=== PATIENT | female | born 1990 | race Asian ===

== ENCOUNTER 2019-05-03 08:30 | Inpatient (IN) | payer BC ==
[2019-05-03] MEDS ORDERED: AMPICILLIN SODIUM 2 GM VIAL ONE (09:22)
[2019-05-03] MEDS ORDERED: AMPICILLIN - 2 GM in SODIUM CHLORIDE 100 ML IVPB ONE (09:30)
[2019-05-03 10:32] VITALS: BMI 24.7
[2019-05-03 10:47] LABS: BASO % 0.4 % (0-2.0); EOS % 0.4 % (0-4.5); HEMATOCRIT 37.5 % (32.4-45.2); HEMOGLOBIN 12.4 GM/dL (10.7-15.3); LYMPH % 19.9 % (8-40); MCH 30.1 pg (25.7-33.7); MEAN CELL VOLUME 91.2 fl (80-96); MEAN PLT VOLUME 7.2 fl (7.5-11.1); MONO % 5.1 % (3.8-10.2); NEUT % 74.2 % (42.8-82.8); PLATELET COUNT 299 K/MM3 (134-434); RBC 4.12 M/mm3 (3.60-5.2); RDW 13.6 % (11.6-15.6); WHITE BLOOD COUNT 12.4 K/mm3 (4.0-10.0)
[2019-05-03 11:09] LABS: INR 0.82 (0.83-1.09); PROTHROMBIN TIME (PATIENT) 9.6 SEC (9.7-13.0)
[2019-05-03 11:10] LABS: ACTIVATED PTT 29.4 SECONDS (25.2-36.5)
[2019-05-03 11:12] LABS: BLOOD UREA NITROGEN 7.9 mg/dL (7-18); CALCIUM 8.7 mg/dL (8.5-10.1); CREATININE 0.7 mg/dL (0.55-1.3)
[2019-05-03] MEDS ORDERED: ELECTROLYTE-148 SOLN 500 ML IV ONE (11:15)
--- NOTE | 2019-05-03 11:30 | HP ---
Past Medical History - Admission History of Present Illness: 28 yo @ 39 5/7 wks by first trimester ultrasound, EDC 05/05/2019 complicated by: 1. GBS positive - no PCN allergy Patient reports contractions began at midnight, became stronger at around 0500 this AM. She reports movement, denies leakage of fluid, vaginal bleeding. History Source: Patient Limitations to Obtaining History: No Limitations - Past Medical History Cardiovascular: No: HTN Pulmonary: No: Asthma Gastrointestinal: No: GERD ...: 1 ...Para: 0 ...Term: 0 ...: 0 ...Spon : 0 ...Induced : 0 ...Multiple Gestation: 0 ...LMP: 07/29/18 ... Weeks Gestation by Dates: 39.5 ...EDC by Dates: 05/05/19 ...EDC by Sono: 05/05/19 Heme/Onc: No: Anemia - Past Surgical History Hx Myomectomy: No Hx Transabdominal Cerclage: No - Smoking History Smoking history: Never smoked - Alcohol/Substance Use Hx Alcohol Use: No History of Substance Use: reports: None - Social History History of Recent Travel: No Home Medications - Allergies Allergies/Adverse Reactions: Allergies Allergy/AdvReac Type Severity Reaction Status Date / Time No Known Drug Allergies Allergy Verified 05/03/19 09:43 - Home Medications Home Medications: Ambulatory Orders Prenat 115/Iron Fum/Folic/Dss [ 19 Tablet] 1 tab PO DAILY 05/03/19 Family Disease History - Family Disease History Family History: Denies Review of Systems - Review of Systems Constitutional: reports: No Symptoms Neck: reports: No Symptoms Cardiovascular: reports: No Symptoms Gastrointestinal: reports: No Symptoms Genitourinary: reports: No Symptoms Integumentary: reports: No Symptoms Neurological: reports: No Symptoms Endocrine: reports: No Symptoms Psychiatric: reports: No Symptoms Physical Exam - Maternity Vital Signs: Vital Signs Temperature 98.3 F 05/03/19 10:22 Pulse Rate 77 05/03/19 10:22 Respiratory Rate 20 05/03/19 10:22 Blood Pressure 123/76 05/03/19 10:22 O2 Sat by Pulse Oximetry (%) Constitutional: Yes: Well Nourished, No Distress, Calm Cardiovascular: Yes: Regular Rate and Rhythm, Varicosities - Abdominal Exam/OB Number of Fetuses: Single Presentation: Vertex Contractions: Yes Regularity: Regular Monitor Mode: External Heart Rate (range): 135 Category: I Accelerations: Non-Uniform Decelerations: None - Vaginal Exam/OB Vaginal Bleediing: No Dilatation (cm): 8 Effacement (%): 80 Amniotic Membrane Status: Ruptured Amniotic Fluid: Yes: Clear Station: -1 - Physical Exam Psychiatric: Yes: Alert, Oriented - Labs Lab Results: CBC, BMP 05/03/19 10:25 05/03/19 10:25 PNL: B positive, antibody negative; RPR NR; HIV neg; Varicella immune; Rubella immune; Sequential 1&2 WNL; Inheritest neg; Parvo non immune; Hg Mirtha AA; GCT 132 ; GBS positive Hemorrhage Risk Assessment - Risk Factors Medium Risk Factors: Yes: None High Risk Factors: Yes: None Risk Score: 1 Risk Level: Medium Risk Assessment/Plan 28 yo @ 39+ active labor 1. Admit to L&D 2. GBS positive, will start ampicillin 3. Category I FHT 4. Will offer pain medication upon patient request 5. Will proceed with expectant management
[2019-05-03] MEDS: AMPICILLIN - 1 GM in SODIUM CHLORIDE 100 ML IVPB SCH ×3 (13:00→21:30)
[2019-05-03] MEDS ORDERED: AMPICILLIN SODIUM 1 GM VIAL ONE ×2 (13:00→17:07)
[2019-05-03] MEDS ORDERED: OXYTOCIN 20 UNITS in 0.9% NS 20 UNIT/1,000 ML INFUS.BAG IV ONE (13:18)
[2019-05-03] MEDS ORDERED: FENTANYL/BUPIVACAINE/NS/PF - PCEA - 50 ML DISP.SYRIN EP ONE (13:33)
--- NOTE | 2019-05-03 13:34 | PN ---
Ante-Partal Exam - Subjective Subjective: Patient reports pain and pressure Desires epidural Vital Signs: Vital Signs Temperature 98.5 F 05/03/19 12:00 Pulse Rate 73 05/03/19 12:00 Respiratory Rate 20 05/03/19 12:00 Blood Pressure 133/63 05/03/19 12:00 O2 Sat by Pulse Oximetry (%) Bleeding: No Headache: No Visual changes: No Right upper quadrant pain: No - Contractions Contractions: Yes Regularity: Regular Intensity: Strong Monitor Mode: External - Exam during Labor Heart Rate: 130 Variability: Moderate Category: I Monitor Accelerations: Present Monitor Decelerations: None Exam: Vaginal Dilatation (cm): 9 Effacement (%): 90 Amniotic Membrane Status: Ruptured Presentation: Vertex Station: -1 - Intrapartum Hemorrhage Risk Medium Risk Factors: None High Risk Factors: None Risk Score: 0 Risk Level: Low Risk - Assessment/Plan Assessment/Plan: 28 yo active labor 1. Minimal cervical change, shabbir Q 3 minutes Desires epidural, anesthesia notified 2. GBS positive on ampcillin 3. category IFHT 4. Will proceed with expectant management
[2019-05-03] MEDS ORDERED: ELECTROLYTE-148 SOLN 1,000 ML IV SCH (13:45)
[2019-05-03] MEDS ORDERED: NALOXONE HCL 0.4 MG/ML VIAL IVPUSH PRN (14:21)
[2019-05-03] MEDS ORDERED: FENTANYL/BUPIVACAINE/NS/PF - PCEA - 50 ML DISP.SYRIN EP SCH (14:30)
--- NOTE | 2019-05-03 16:05 | PN ---
Ante-Partal Exam - Subjective Subjective: Patient reports increased pressure Vital Signs: Vital Signs Temperature 98.4 F 05/03/19 15:00 Pulse Rate 72 05/03/19 15:25 Respiratory Rate 20 05/03/19 15:25 Blood Pressure 123/75 05/03/19 15:25 O2 Sat by Pulse Oximetry (%) 100 05/03/19 15:25 Bleeding: No Headache: No Visual changes: No Right upper quadrant pain: No - Contractions Contractions: Yes Regularity: Regular Intensity: Unaware Monitor Mode: External - Exam during Labor Heart Rate: 150 Variability: Moderate Category: I Monitor Accelerations: Present Monitor Decelerations: None Exam: Vaginal Dilatation (cm): 9.5 Effacement (%): 100 Amniotic Membrane Status: Ruptured Presentation: Vertex Station: +1 - Intrapartum Hemorrhage Risk Medium Risk Factors: None High Risk Factors: None Risk Score: 0 Risk Level: Low Risk - Assessment/Plan Assessment/Plan: 28 yo active labor 1. Good cervical change 2. GBS pos 3. category I FHT, fetus does not requre intervention 4. Pain well controlled 5. Will proceed with expectant management
[2019-05-03] MEDS ORDERED: OXYTOCIN 30 UNITS in 0.9% NS 30 UNIT/500 ML INFUS.BAG IVPB ONE (17:07)
[2019-05-03] MEDS ORDERED: METHYLERGONOVINE MALEATE 0.2 MG/1 ML AMP IM PRN (19:03)
[2019-05-03] MEDS ORDERED: BISACODYL 10 MG SUPP.RECT RC PRN (19:03)
[2019-05-03] MEDS ORDERED: BENZOCAINE 28 GM HEMORRHOIDAL OINTMENT TP PRN (19:03)
[2019-05-03] MEDS ORDERED: oxyCODONE HCL 5 MG TABLET PO PRN (19:03)
[2019-05-03] MEDS ORDERED: IBUPROFEN 600 MG TABLET (FP) PO PRN (19:03)
[2019-05-03] MEDS ORDERED: BENZOCAINE 20% 57 GM BOTTLE TP PRN (19:03)
[2019-05-03] MEDS ORDERED: WITCH HAZEL 50% (TUCKS) 40 PAD/JAR PAD TP PRN (19:03)
[2019-05-03] MEDS ORDERED: ACETAMINOPHEN 325 MG TABLET (FP) PO PRN (19:03)
--- NOTE | 2019-05-03 19:06 | PN ---
Delivery - Delivery Vaginal Delivery: No Problems Type of Anesthesia: Epidural Episiotomy/Laceration: Midline, Right Mediolateral, 1st degree EBL (cc): 300 Delivery, Single - Stages of Labor Date 1st Stage Initiatied: 05/03/19 Time 1st Stage Initiated: 05:00 Date 2nd Stage Initiated: 05/03/19 Time 2nd Stage Initiated: 17:00 Date of Delivery: 05/03/19 Time of Delivery: 18:41 Date Placenta Delivered: 05/03/19 Time Placenta Delivered: 18:45 Placenta: Yes: Spontaneous - Condition of Infant Gender: Male Position: Left, OA Total Hours ROM (Hrs/Mins): 7 hours 55 minutes - 1 Minute Total Score: 6 5 Minutes Total Score: 8 - Feeding Plan Initial Plan: Exclusive throughout hospitalization Remarks - Remarks Remarks: Patient progressed to fully dilated and at 1841 via delivered a viable male infant in SCOTT position, APGARs 6,8. Weight and length unknown at this time. Head delivered spontaneously followed by shoulders and body without difficulty. with spontaneous cry and placed on mother's abdomen. Nose and mouth was bulb suctioned. Cord was clamped and cut. Perineum and vagina examined, a first degree vaginal and right lateral laceration was noted and repaired in the usual fashion. Placenta was delivered spontaneously and intact. 20 units of pitocin in 1 L IVF was given. All counts correct x 2. Mother and stable in LDR. EBL 300cc.
[2019-05-03] MEDS ORDERED: OXYTOCIN 20 UNITS in 0.9% NS 20 UNIT/1,000 ML INFUS.BAG IV SCH (19:15)
[2019-05-03 19:27] LABS: VENOUS PC02 48.4 mmHg (41-51)
[2019-05-03 19:29] LABS: VENOUS PH 7.1 (7.31-7.41)
[2019-05-03] MEDS ORDERED: ACETAMINOPHEN 325 MG TABLET (FP) ONE (19:35)
[2019-05-03] MEDS ORDERED: IBUPROFEN 600 MG TABLET (FP) PO ONE (19:35)
[2019-05-03] MEDS ORDERED: IBUPROFEN 100 MG/5 ML UNIT DOSE CUPS PO PRN (19:55)
[2019-05-03] MEDS: SENNOSIDES/DOCUSATE COMBO (SENNA PLUS) TABLET (UD) PO PRN (22:05)
--- NOTE | 2019-05-04 02:16 | PN ---
Post Progress Note - Subjective Subjective: Patient without acute complaints. Reports tolerating oral intake without nausea or vomiting. Ambulating without dizziness. Denies fevers or chills. Pain well controlled with oral pain medication. without difficulty. Passing flatus. Post Day: 1 Type of Delivery: Vital Signs: Vital Signs Temperature 98.6 F 05/04/19 01:10 Pulse Rate 90 05/04/19 01:10 Respiratory Rate 20 05/04/19 01:10 Blood Pressure 105/56 L 05/04/19 01:10 O2 Sat by Pulse Oximetry (%) 100 05/03/19 16:55 Breast Exam: Yes: Soft Uterus: Yes: Fundus Firm Abdomen/GI: Yes: Abdomen soft, Passing flatus, Tolerating PO. No: Abdominal Distention, Tender Lochia: Yes: Serosa Lochia, amount: Moderate Extremities: Yes: Calves non-tender, Edema (trace) Perineum: Yes: Laceration Activity: Ambulating - Labs Labs: CBC WBC 12.4 K/mm3 (4.0-10.0) H 05/03/19 10:25 RBC 4.12 M/mm3 (3.60-5.2) 05/03/19 10:25 Hgb 12.4 GM/dL (10.7-15.3) 05/03/19 10:25 Hct 37.5 % (32.4-45.2) 05/03/19 10:25 MCV 91.2 fl (80-96) 05/03/19 10:25 MCH 30.1 pg (25.7-33.7) 05/03/19 10:25 MCHC 33.0 g/dl (32.0-36.0) 05/03/19 10:25 RDW 13.6 % (11.6-15.6) 05/03/19 10:25 Plt Count 299 K/MM3 (134-434) 05/03/19 10:25 MPV 7.2 fl (7.5-11.1) L 05/03/19 10:25 Absolute Neuts (auto) 9.2 K/mm3 (1.5-8.0) H 05/03/19 10:25 Neutrophils % 74.2 % (42.8-82.8) 05/03/19 10:25 Lymphocytes % 19.9 % (8-40) 05/03/19 10:25 Monocytes % 5.1 % (3.8-10.2) 05/03/19 10:25 Eosinophils % 0.4 % (0-4.5) 05/03/19 10:25 Basophils % 0.4 % (0-2.0) 05/03/19 10:25 Nucleated RBC % 0 % (0-0) 05/03/19 10:25 Assessment/Plan 28 yo PPD # 1 s/p , afebrile, vital signs stable, doing well 1. Continue routine care. 2. Follow up AM CBC 3. Rh positive status, no rhogam indicated. 4. Encourage ambulation 5. Continue oral pain medication 6. Anticipate discharge home day #2
[2019-05-04 08:16] LABS: BASO % 0.3 % (0-2.0); EOS % 0.1 % (0-4.5); HEMATOCRIT 31.4 % (32.4-45.2); HEMOGLOBIN 10.5 GM/dL (10.7-15.3); LYMPH % 12.8 % (8-40); MCH 30.2 pg (25.7-33.7); MCHC 33.4 g/dl (32.0-36.0); MEAN CELL VOLUME 90.6 fl (80-96); MEAN PLT VOLUME 7.6 fl (7.5-11.1); NEUT % 80.8 % (42.8-82.8); PLATELET COUNT 257 K/MM3 (134-434); RBC 3.46 M/mm3 (3.60-5.2); RDW 13.5 % (11.6-15.6); WHITE BLOOD COUNT 24.7 K/mm3 (4.0-10.0)
[2019-05-04] MEDS: PRENATAL VITAMINS W/ FOLIC ACID TABLET (FP) PO SCH (09:33)
[2019-05-04 13:05] LABS: ANISOCYTOSIS 1+; MACROCYTOSIS 0; PLATELET ESTIMATE NORMAL
[2019-05-04] MEDS: SENNOSIDES/DOCUSATE COMBO (SENNA PLUS) TABLET (UD) PO PRN (20:18)
--- NOTE | 2019-05-05 06:37 | DS ---
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 Vital Signs: Vital Signs Temperature 98.2 F 05/04/19 20:38 Pulse Rate 77 05/04/19 20:38 Respiratory Rate 20 05/04/19 20:38 Blood Pressure 108/74 05/04/19 20:38 O2 Sat by Pulse Oximetry (%) 100 05/03/19 16:55 Constitutional: Yes: Well Nourished, No Distress, Calm Eyes: Yes: WNL, Conjunctiva Clear, EOM Intact HENT: Yes: WNL, Atraumatic, Normocephalic Neck: Yes: WNL, Supple, Trachea Midline Cardiovascular: Yes: WNL, Regular Rate and Rhythm Respiratory: Yes: WNL, Regular, CTA Bilaterally Gastrointestinal: Yes: WNL ...Rectal Exam: Yes: WNL Renal/: Yes: WNL External Genitalia: Yes: Normal ....Post : Yes: Uterus firm, Uterus non-tender, Slight lochia rubra Breast(s): Yes: WNL Musculoskeletal: Yes: WNL Extremities: Yes: WNL Edema: No Integumentary: Yes: WNL Neurological: Yes: WNL, Alert, Oriented ...Motor Strength: WNL Psychiatric: Yes: WNL, Alert, Oriented Labs: CBC, BMP 05/04/19 07:12 05/03/19 10:25 Delivery - Delivery Vaginal Delivery: No Problems Type of Anesthesia: Epidural Episiotomy/Laceration: Midline, Right Mediolateral, 1st degree EBL (cc): 300 Delivery, Single - Stages of Labor Date 1st Stage Initiatied: 05/03/19 Time 1st Stage Initiated: 05:00 Date 2nd Stage Initiated: 05/03/19 Time 2nd Stage Initiated: 17:00 Date of Delivery: 05/03/19 Time of Delivery: 18:41 Time Placenta Delivered: 18:45 Placenta: Yes: Spontaneous - Condition of Infant 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 Infant Gender: Male Weight: 5 lb 14 oz Position: Left, OA Total Hours ROM (Hrs/Mins): 7 hours 55 minutes - 1 Minute Total Score: 8 5 Minutes Total Score: 6 - Feeding Plan Initial Plan: Exclusive throughout hospitalization Discharge Summary Reason For Visit: LABOR ADMISSION Procedures: Principal: Hospital Course: no complicatio Condition: Good - Instructions Diet, Activity, Other Instructions: regular diet, follow up office 4 weeks, if fever, severe pain, heavy vaginal bleeding call md Referrals: Vijaya Rodgers MD [Staff Physician] - Disposition: HOME - Home Medications Comprehensive Discharge Medication List: Ambulatory Orders Prenat 115/Iron Fum/Folic/Dss [ 19 Tablet] 1 tab PO DAILY 05/03/19 Ibuprofen [Motrin -] 600 mg PO QID #28 tablet 05/05/19
[2019-05-05 07:58] VITALS: BP 117/76; PULSE 64; TEMP 97.6
[2019-05-05 08:01] LABS: BASO % 0.4 % (0-2.0); HEMOGLOBIN 10.3 GM/dL (10.7-15.3); LYMPH % 21.5 % (8-40); MCH 30.2 pg (25.7-33.7); MCHC 33.3 g/dl (32.0-36.0); MEAN CELL VOLUME 90.6 fl (80-96); MEAN PLT VOLUME 7.3 fl (7.5-11.1); MONO % 5.6 % (3.8-10.2); NEUT % 71.5 % (42.8-82.8); RBC 3.42 M/mm3 (3.60-5.2); RDW 13.9 % (11.6-15.6); WHITE BLOOD COUNT 16.2 K/mm3 (4.0-10.0)
[2019-05-05 08:29] LABS: PLATELET COUNT 253 K/MM3 (134-434)
[2019-05-05] MEDS: PRENATAL VITAMINS W/ FOLIC ACID TABLET (FP) PO SCH (09:37)
== END 2019-05-05 15:10 | disposition home or self-care (01) | DRG 807 ==
LOC: JDEL 08:30 → JLDR 09:00 → J3W 20:53
PROVIDERS: ADMIT Obstetrics & Gynecology; ATTEND Obstetrics & Gynecology
PROC: 10E0XZZ Delivery of Products of Conception, External Approach (ICD-10-PCS; principal; 2019-05-03)
PROC: 3E0R3BZ Introduction of Anesthetic Agent into Spinal Canal, Percutaneous Approach (ICD-10-PCS; 2019-05-03)
DX: O99.824 Streptococcus B carrier state complicating childbirth (principal); Z37.0 Single live birth; O70.0 First degree perineal laceration during delivery; Z3A.39 39 weeks gestation of pregnancy
CPT/HCPCS: 36415; 36600; 59409; 80048; 82803; 85025; 85610; 85730; 86593; 86850; 86900; 86901